=== PATIENT | male | born 1990 | race Caucasian/White ===

== ENCOUNTER 2019-02-16 14:45 | Emergency (ER) | payer MEDICAID, OTHER ==
--- NOTE | 2019-02-16 15:22 | EDM.PDOC ---
ED HPI GENERAL MEDICAL PROBLEM - General Chief Complaint: General Stated Complaint: FACIAL INJURY Time Seen by Provider: 02/16/19 15:03 Source of Information: Reports: Patient, Significant Other History Limitations: Reports: No Limitations - History of Present Illness INITIAL COMMENTS - FREE TEXT/NARRATIVE: Patient presents with pain in right cheek and nasal region. This morning he blew a large blood clot out of his nose and coughed up another one. Four days ago he hit the right side of his cheek and nose very hard on a 2 x 4 board when the pankaj handle he was pushing on broke off. He came down hard on the board and co-workers said he was a little dazed for awhile but no LOC. He did fall to the ground and had blurry vision for about 10 minutes. He has had pain off and on in the right cheek, advent, nasal region since the injury. He treats it with Ibuprofen and hasn't been too concerned about it until he blew and coughed out blood this morning. The bleeding has not continued. His teeth and gums also hurt and sometimes feel numb. He also feels a clicking feeling in the right cheek sometimes. His says she hasn't noticed any unusual behavior or signs from him. - Related Data Allergies Allergy/AdvReac Type Severity Reaction Status Date / Time cefixime [From Suprax] Allergy Cannot Verified 02/16/19 14:56 Remember Home Meds: Home Meds Ibuprofen [Advil] 200 mg PO ASDIRECTED 02/16/19 [History] Past Medical History - Past Health History Medical/Surgical History: Denies Medical/Surgical History - Infectious Disease History Infectious Disease History: Reports: Meningitis - Past Surgical History HEENT Surgical History: Reports: Myringotomy w Tube(s), Oral Surgery, Tonsillectomy Musculoskeletal Surgical History: Reports: Other (See Below) Other Musculoskeletal Surgeries/Procedures:: Pin to foot. Social & Family History - Family History Family Medical History: Noncontributory - Tobacco Use Smoking Status *Q: Never Smoker - Caffeine Use Caffeine Use: Reports: Coffee - Recreational Drug Use Recreational Drug Use: No ED ROS GENERAL - Review of Systems Review Of Systems: See Below Constitutional: Denies: Fever, Chills, Malaise, Weakness HEENT: Reports: Dental Pain, Nosebleed (see HPI), Nose Pain. Denies: Ear Discharge, Ear Pain, Eye Discharge, Eye Pain, Hearing Loss, Throat Pain, Vision Change Respiratory: Denies: Shortness of Breath, Cough Cardiovascular: Denies: Chest Pain, Lightheadedness, Syncope Endocrine: Reports: No Symptoms GI/Abdominal: Reports: No Symptoms : Reports: No Symptoms Musculoskeletal: Reports: Shoulder Pain (He bumped his right shoulder hard during the fall as well but just bruising with no pain or problems to ROM.). Denies: Neck Pain, Back Pain, Hand Pain, Leg Pain Skin: Reports: No Symptoms Neurological: Reports: Headache (right face area only), Numbness (right upper teeth). Denies: Confusion, Dizziness, Seizure, Syncope, Trouble Speaking, Difficulty Walking, Weakness, Change in Speech Psychiatric: Denies: Agitation, Anxiety, Confusion ED EXAM, GENERAL - Physical Exam Exam: See Below Exam Limited By: No Limitations General Appearance: Alert, WD/WN, No Apparent Distress Eye Exam: Bilateral Eye: EOMI, Normal Inspection (full visual skelton bilat), PERRL Ears: Normal External Exam, Normal Canal, Hearing Grossly Normal, Normal TMs Ear Exam: Bilateral Ear: Auricle Normal, Canal Normal, TM normal Nose: Normal Inspection, Normal Mucosa, No Blood Throat/Mouth: Normal Inspection, Normal Lips, Normal Teeth (no evidence of broken teeth, nontender to palpation of teeth and gums), Normal Gums, Normal Oropharynx, Normal Voice, No Airway Compromise Head: Normocephalic, Facial Tenderness (right upper cheek). No: Facial Swelling Neck: Normal Inspection, Supple, Non-Tender, Full Range of Motion Respiratory/Chest: No Respiratory Distress, Lungs Clear, Normal Breath Sounds, No Accessory Muscle Use Cardiovascular: Regular Rate, Rhythm, No Murmur GI/Abdominal: Soft, Non-Tender Back Exam: Normal Inspection, Full Range of Motion Extremities: Normal Inspection, Normal Range of Motion, Non-Tender Neurological: Alert, Oriented, CN II-XII Intact, Normal Cognition, Normal Gait, No Motor/Sensory Deficits Psychiatric: Normal Affect, Normal Mood Skin Exam: Warm, Dry, Intact, Normal Color, No Rash Course - Vital Signs Last Recorded V/S: Last Vital Signs Temp 97.1 F 02/16/19 14:51 Pulse 61 02/16/19 14:51 Resp 14 02/16/19 14:51 BP 141/80 H 02/16/19 14:51 Pulse Ox 98 02/16/19 14:51 - Orders/Labs/Meds Orders: Active Orders 24 hr Category Date Time Status Maxillofacial w/o CM [Max Facial Sinus wo Cont] [CT] Exams 02/16/19 15:14 Ordered Stat - Re-Assessments/Exams Free Text/Narrative Re-Assessment/Exam: 02/16/19 16:08 CT shows minimally displaced fracture of right maxillary sinus wall. No other pathology noted. Discussed findings with patient and his . 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 Patient discharged to home in stable condition. Departure - Departure Time of Disposition: 15:58 Disposition: Home, Self-Care 01 Condition: Good Clinical Impression: Maxillary sinus fracture Qualifiers: Encounter type: initial encounter Fracture type: closed Qualified Code(s): S02.401A - Maxillary fracture, unspecified side, initial encounter for closed fracture - Discharge Information Referrals: PCP,Not In Area [Primary Care Provider] - Additional Instructions: 1. Try to avoid re-injury of the fracture. 2. Use Tylenol and/or Ibuprofen as needed for pain control. 3. It would be good to follow up with ENT in the next 7-10 days. - My Orders Last 24 Hours: My Active Orders 02/16/19 15:14 Maxillofacial w/o CM [Max Facial Sinus wo Cont] [CT] Stat - Assessment/Plan Last 24 Hours: My Active Orders 02/16/19 15:14 Maxillofacial w/o CM [Max Facial Sinus wo Cont] [CT] Stat
--- NOTE | 2019-02-16 15:44 | CT ---
[id number] CT/CT Facial Bones WO IV Exam: CT Facial Bones WO IV Indication:INJURY. Comparison: No prior imaging for comparison. Discussion: Right maxillary contusion with a minimally displaced fracture of the anterior right maxillary sinus wall. No other fractures are identified. Mild to moderate amount of polyploid maxillary sinus wall thickening, consistent with sinusitis. Impression: Minimally displaced acute fracture of the right maxillary sinus anterior wall with overlying soft tissue contusion. Quang Christian MD 02/16/19 1543 Thank you for allowing us to participate in the care of your patient.
== END 2019-02-16 16:07 | disposition home or self-care (01) ==
LOC: KA.ED 14:45
DX: S02.40CA Maxillary fracture, right side, initial encounter for closed fracture (principal); Z88.1 Allergy status to other antibiotic agents; Z79.899 Other long term (current) drug therapy; W22.8XXA Striking against or struck by other objects, initial encounter
CPT/HCPCS: 70486; 99283-25